=== PATIENT | female | born 1960 | race Caucasian/White ===

== ENCOUNTER 2017-03-06 10:34 | Emergency (ER) | payer OTHER ==
[~2017-03-06] VITALS: Ht 157.5 cm; Wt 98.9 kg
--- NOTE | ~2017-03-06 | EKG ---
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 : 1960 Requested By: Debi Wood Order Number: [id number] MD: Jose Preciado Measurements Intervals [place] Rate: 67 P: 45 HI: 175 QRS: 10 QRSD: 88 T: 23 QT: 390 QTc: 412 Interpretive Statements Sinus rhythm Probable left atrial enlargement Minimal ST elevation, inferior leads Compared to ECG 07/02/2006 13:02:26 ST (T wave) deviation now present Sinus bradycardia no longer present Electronically Signed On 03-06-2017 11:35:33 MILITARY SCIENCE TEACHER by Jose Preciado [email or web address] <ELECTRONICALLY SIGNED> By: Jose Preciado MD 03/06/17 1135 1057 105 Jose Preciado MD /TYLER
[~2017-03-06 10:34] MED LIST: ANTIVERT25 MG PO; CETIRIZINE HCL10 MG PO; HYDROCODONE-AP1 EAC6 PO; K-DUR 20 MEQ T20 MEQ PO; LIORESAL 10 MG10 MG PO; NEURONTIN 300300 M1 PO; QUINAPRIL-HCTZ1 EAC1 PO; TOLTERODINE TART1 MG PO; ZANTAC 150MG T150 MG PO
[2017-03-06 11:18] LABS: ABSOLUTE NEUTROPHILS 3.2 thou/uL (1.4-8.2); BASOPHILS 0.7 % (0.0-2.0); EOSINOPHILS 3.6 % (0.0-3.0); HEMOGLOBIN 14.8 gm/dL (12.0-15.0); LYMPHOCYTES 34.1 % (24.0-44.0); MCH 29.4 pg (26.0-34.0); MCHC 33.6 g/dL (28.0-37.0); MCV 87.6 fL (80.0-100.0); MONOCYTES 8.3 % (1.0-8.0); PLATELET COUNT 285 thou/uL (150-400); POLYS 53.3 % (36.0-66.0); RBC 5.03 mil/uL (4.20-5.00); RDW 13.8 % (10.5-14.5)
[2017-03-06 11:20] LABS: MANUAL DIFF NO
[2017-03-06 11:25] LABS: ANION GAP 10 mmol/L (7-16); BUN 17 mg/dL (7-18); CALCIUM 9.6 mg/dL (8.5-10.1); CHLORIDE 103 mmol/L (98-107); CO2 26 mmol/L (21-32); CREATININE 0.9 mg/dL (0.6-1.0); GLUCOSE 96 mg/dL (74-106); POTASSIUM 4.2 mmol/L (3.5-5.1); SODIUM 139 mmol/L (136-145)
[2017-03-06 11:34] LABS: TROPONIN-I < 0.04 ng/mL (<0.06)
[2017-03-06] MEDS ORDERED: IBUPROFEN 800800 MG PO (13:31)
[2017-03-06 14:00] VITALS: BP 120/71
== END 2017-03-06 14:02 | disposition home or self-care (01) ==
LOC: ER 10:34
PROVIDERS: Emergency Medicine
DX: R07.9 Chest pain, unspecified (principal); I10 Essential (primary) hypertension; Z90.49 Acquired absence of other specified parts of digestive tract; C64.9 Malignant neoplasm of unspecified kidney, except renal pelvis

== ENCOUNTER 2018-04-30 09:17 | Emergency (ER) | payer OTHER ==
[~2018-04-30] VITALS: Ht 157.5 cm; Wt 90.7 kg
[~2018-04-30 09:17] MED LIST changes: +ASPIRIN325 PO; +IBUPROFEN 800800 MG PO; +MOBIC7.5 MG PO; +OXYCODONE-APAP1 EAC4 PO; +VITAMIN B-12500 MCG PO; +VITAMIN D3400 UNI2 PO
[2018-04-30 09:49] LABS: ABSOLUTE NEUTROPHILS 2.7 thou/uL (1.4-8.2); BASOPHILS 0.5 % (0.0-2.0); EOSINOPHILS 5.7 % (0.0-3.0); HEMATOCRIT 43.2 % (37.0-47.0); HEMOGLOBIN 14.4 gm/dL (12.0-15.0); LYMPHOCYTES 26.6 % (24.0-44.0); MCH 28.6 pg (26.0-34.0); MCHC 33.4 g/dL (28.0-37.0); MCV 85.4 fL (80.0-100.0); MONOCYTES 9.6 % (1.0-8.0); PLATELET COUNT 272 thou/uL (150-400); POLYS 57.6 % (36.0-66.0); RBC 5.06 mil/uL (4.20-5.00); RDW 14.8 % (10.5-14.5); WBC 4.7 thou/uL (4.0-11.0)
[2018-04-30 09:50] LABS: URINE BILIRUBIN NEGATIVE (Negative); URINE BLOOD TRACE (Negative); URINE CLARITY CLEAR; URINE COLOR YELLOW; URINE GLUCOSE-RANDOM* NEGATIVE (Negative); URINE KETONES NEGATIVE (Negative); URINE PROTEIN (DIPSTICK) NEGATIVE (Negative); URINE SPECIFIC GRAVITY <= 1.005 (1.005-1.035)
[2018-04-30 09:51] LABS: URINE LEUKOCYTES-REFLEX 2+ (Negative); URINE NITRITE-REFLEX NEGATIVE (Negative); URINE UROBILINOGEN 0.2 E.U./dl (0.2-1.0)
[2018-04-30 09:57] LABS: CALCIUM 9.2 mg/dL (8.5-10.1); CREATININE 0.8 mg/dL (0.6-1.0); POTASSIUM 3.8 mmol/L (3.5-5.1)
[2018-04-30 10:02] LABS: ALBUMIN 3.7 g/dL (3.4-5.0); TOTAL BILIRUBIN 0.4 mg/dL (<0.1-1.0); TOTAL PROTEIN 7.7 g/dL (6.4-8.2)
[2018-04-30 10:06] LABS: AMORPHOUS URATES Moderate /LPF (None Seen); BACTERIA-REFLEX 1-9 Few /HPF (None Seen); CASTS None Seen /LPF (None Seen); SQUAMOUS >10 Many /LPF (0-3); URINE RBC None Seen /HPF (0-2); URINE WBC-REFLEX 6-15 Few /HPF (0-5)
[2018-04-30] MEDS ORDERED: ZOFRAN ODT4 MG PO (12:04)
[2018-04-30] MEDS ORDERED: NORCO 5-325 TA1 EACH PO (12:04)
[2018-04-30] MEDS ORDERED: PROTONIX40 M1 PO (12:04)
[2018-04-30 12:24] VITALS: BP 118/76
== END 2018-04-30 12:22 | disposition home or self-care (01) ==
LOC: ER 09:17
PROVIDERS: Emergency Medicine
DX: R10.13 Epigastric pain (principal); R10.33 Periumbilical pain; R11.0 Nausea; I10 Essential (primary) hypertension; Z90.49 Acquired absence of other specified parts of digestive tract; Z85.528 Personal history of other malignant neoplasm of kidney

== ENCOUNTER 2018-07-25 08:54 | Emergency (ER) | payer OTHER ==
[~2018-07-25] VITALS: Ht 165.1 cm; Wt 106.6 kg
[~2018-07-25 08:54] MED LIST changes: +NORCO 5-325 TA1 EACH PO; +PROTONIX40 M1 PO; +ZOFRAN ODT4 MG PO
[2018-07-25 09:18] LABS: URINE BILIRUBIN NEGATIVE (Negative); URINE BLOOD TRACE (Negative); URINE CLARITY CLEAR; URINE COLOR YELLOW; URINE GLUCOSE-RANDOM* NEGATIVE (Negative); URINE KETONES NEGATIVE (Negative); URINE LEUKOCYTES-REFLEX 1+ (Negative); URINE NITRITE-REFLEX NEGATIVE (Negative); URINE PROTEIN (DIPSTICK) NEGATIVE (Negative); URINE SPECIFIC GRAVITY <= 1.005 (1.005-1.035); URINE UROBILINOGEN 0.2 E.U./dl (0.2-1.0)
[2018-07-25 09:26] LABS: BACTERIA-REFLEX None Seen /HPF (None Seen); CASTS None Seen /LPF (None Seen); CRYSTALS None Seen /LPF (None Seen); SQUAMOUS 0-3 Few /LPF (0-3); URINE RBC None Seen /HPF (0-2); URINE WBC-REFLEX 0-5 Rare /HPF (0-5)
[2018-07-25] MEDS ORDERED: BACTRIM DS TAB1 EACH PO (09:50)
[2018-07-25 10:12] LABS: ABSOLUTE NEUTROPHILS 3.3 thou/uL (1.4-8.2); BASOPHILS 0.6 % (0.0-2.0); EOSINOPHILS 6.4 % (0.0-3.0); HEMATOCRIT 43.2 % (37.0-47.0); HEMOGLOBIN 14.4 gm/dL (12.0-15.0); LYMPHOCYTES 17.8 % (24.0-44.0); MCH 28.5 pg (26.0-34.0); MCHC 33.3 g/dL (28.0-37.0); MCV 85.6 fL (80.0-100.0); MONOCYTES 8.4 % (1.0-8.0); PLATELET COUNT 255 thou/uL (150-400); POLYS 66.8 % (36.0-66.0); RBC 5.05 mil/uL (4.20-5.00)
[2018-07-25 10:17] LABS: CALCIUM 9.9 mg/dL (8.5-10.1); CREATININE 0.8 mg/dL (0.6-1.0); POTASSIUM 4.2 mmol/L (3.5-5.1)
[2018-07-25 10:23] LABS: ALBUMIN 3.7 g/dL (3.4-5.0); TOTAL BILIRUBIN 0.5 mg/dL (<0.1-1.0); TOTAL PROTEIN 7.7 g/dL (6.4-8.2)
[2018-07-25] MEDS ORDERED: NORCO 5-325 TA1 EACH PO (13:01)
[2018-07-25 13:04] VITALS: BP 132/76
== END 2018-07-25 13:05 | disposition home or self-care (01) ==
LOC: ER 08:54
PROVIDERS: Emergency Medicine; Physician Assistant
DX: N39.0 Urinary tract infection, site not specified (principal); M54.9 Dorsalgia, unspecified; Z85.528 Personal history of other malignant neoplasm of kidney; I10 Essential (primary) hypertension; Z90.49 Acquired absence of other specified parts of digestive tract; Z96.652 Presence of left artificial knee joint

== ENCOUNTER 2018-09-22 13:36 | Emergency (ER) | payer OTHER ==
[~2018-09-22] VITALS: Ht 157.5 cm; Wt 85.7 kg
[~2018-09-22 13:36] MED LIST changes: +BACTRIM DS TAB1 EACH PO
[2018-09-22 14:00] LABS: URINE BILIRUBIN NEGATIVE (Negative); URINE BLOOD TRACE (Negative); URINE CLARITY CLEAR; URINE COLOR YELLOW; URINE GLUCOSE-RANDOM* NEGATIVE (Negative); URINE KETONES NEGATIVE (Negative); URINE NITRITE-REFLEX NEGATIVE (Negative); URINE PROTEIN (DIPSTICK) NEGATIVE (Negative); URINE SPECIFIC GRAVITY <= 1.005 (1.005-1.035); URINE UROBILINOGEN 0.2 E.U./dl (0.2-1.0)
[2018-09-22 14:03] LABS: URINE LEUKOCYTES-REFLEX 2+ (Negative)
[2018-09-22 14:26] LABS: BACTERIA-REFLEX 1-9 Few /HPF (None Seen); CASTS None Seen /LPF (None Seen); CRYSTALS None Seen /LPF (None Seen); SQUAMOUS 0-3 Few /LPF (0-3); URINE RBC 0-2 Rare /HPF (0-2); URINE WBC-REFLEX 6-15 Few /HPF (0-5)
[2018-09-22] MEDS ORDERED: NORCO 5-325 TA1 EAC1 PO (14:44)
[2018-09-22] MEDS ORDERED: MACROBID 100 M100 M1 PO (14:46)
[2018-09-22 15:57] VITALS: BP 135/83
== END 2018-09-22 18:42 | disposition home or self-care (01) ==
LOC: ER 13:36
PROVIDERS: Physician Assistant
DX: S92.515A Nondisplaced fracture of proximal phalanx of left lesser toe(s), initial encounter for closed fracture (principal); I10 Essential (primary) hypertension; Z96.652 Presence of left artificial knee joint; Z90.49 Acquired absence of other specified parts of digestive tract; Z85.53 Personal history of malignant neoplasm of renal pelvis; Z79.899 Other long term (current) drug therapy; X58.XXXA Exposure to other specified factors, initial encounter; Y93.89 Activity, other specified; Y92.89 Other specified places as the place of occurrence of the external cause; Y99.8 Other external cause status

== ENCOUNTER 2019-03-01 12:34 | Emergency (ER) | payer OTHER ==
[~2019-03-01] VITALS: Ht 157.5 cm; Wt 87.5 kg
[~2019-03-01 12:34] MED LIST changes: +MACROBID 100 M100 M1 PO; +NORCO 5-325 TA1 EAC1 PO
[2019-03-01] MEDS ORDERED: BACLOFEN 10MG T10 MG PO (12:52)
[2019-03-01] MEDS ORDERED: VICTOZA0.6 MG/0.1 SUBQ (12:53)
[2019-03-01] MEDS ORDERED: NORCO 5-325 TA1 EAC1 PO (15:07)
[2019-03-01] MEDS ORDERED: NORFLEX100 MG PO (15:07)
[2019-03-01 15:21] VITALS: BP 133/85
== END 2019-03-01 15:22 | disposition home or self-care (01) ==
LOC: ER 12:34
DX: M47.896 Other spondylosis, lumbar region (principal); I10 Essential (primary) hypertension; Z85.528 Personal history of other malignant neoplasm of kidney; Z90.49 Acquired absence of other specified parts of digestive tract; Z96.652 Presence of left artificial knee joint

== ENCOUNTER 2020-04-04 16:18 | Emergency (ER) | payer OTHER ==
[~2020-04-04] VITALS: Ht 157.5 cm; Wt 88.5 kg
[~2020-04-04 16:18] MED LIST changes: +BACLOFEN 10MG T10 MG PO; +NORFLEX100 MG PO; +VICTOZA0.6 MG/0.1 SUBQ
[2020-04-04] MEDS ORDERED: NORFLEX100 MG PO (17:13)
[2020-04-04 18:53] VITALS: BP 128/72
== END 2020-04-04 18:53 | disposition home or self-care (01) ==
LOC: ER 16:18
DX: M54.16 Radiculopathy, lumbar region (principal); G89.4 Chronic pain syndrome; I10 Essential (primary) hypertension; Z79.82 Long term (current) use of aspirin; Z79.899 Other long term (current) drug therapy; Z90.49 Acquired absence of other specified parts of digestive tract; Z96.652 Presence of left artificial knee joint; Z85.528 Personal history of other malignant neoplasm of kidney

== ENCOUNTER 2020-06-07 13:35 | Emergency (ER) | payer OTHER ==
[~2020-06-07] VITALS: Ht 157.5 cm; Wt 88.5 kg
[2020-06-07 14:17] LABS: ABSOLUTE NEUTROPHILS 3.3 thou/uL (1.4-8.2); BASOPHILS 0.7 % (0.0-2.0); EOSINOPHILS 4.2 % (0.0-3.0); HEMATOCRIT 42.7 % (37.0-47.0); HEMOGLOBIN 13.8 gm/dL (12.0-15.0); LYMPHOCYTES 28.4 % (24.0-44.0); MCH 28.4 pg (26.0-34.0); MCHC 32.2 g/dL (28.0-37.0); MCV 88.2 fL (80.0-100.0); MONOCYTES 8.8 % (1.0-8.0); PLATELET COUNT 296 thou/uL (150-400); POLYS 57.9 % (36.0-66.0); RBC 4.84 mil/uL (4.20-5.00); RDW 15.2 % (10.5-14.5); WBC 5.7 thou/uL (4.0-11.0)
[2020-06-07 14:31] LABS: APTT 27.3 Seconds (24.5-32.8); PROTIME 10.1 Seconds (9.3-11.4)
[2020-06-07 14:33] LABS: INR < 0.9
[2020-06-07 14:36] LABS: ANION GAP 10 mmol/L (7-16); BUN 11 mg/dL (7-18); CALCIUM 9.5 mg/dL (8.5-10.1); CHLORIDE 103 mmol/L (98-107); CO2 26 mmol/L (21-32); CREATININE 0.8 mg/dL (0.6-1.0); GLUCOSE 87 mg/dL (74-106); POTASSIUM 3.7 mmol/L (3.5-5.1); SODIUM 139 mmol/L (136-145)
[2020-06-07 14:48] LABS: ALBUMIN 3.9 g/dL (3.4-5.0); LIPASE 139 U/L (73-393); SGOT 42 U/L (15-37); SGPT 39 U/L (14-59); TOTAL BILIRUBIN 0.4 mg/dL (0.2-1.0); TOTAL PROTEIN 7.6 g/dL (6.4-8.2); TROPONIN-I <0.06 ng/mL (<0.06)
[2020-06-07] MEDS ORDERED: FAMOTIDINE 20 M20 MG PO (16:06)
[2020-06-07] MEDS ORDERED: OMEPRAZOLE40 MG PO (16:06)
[2020-06-07] MEDS ORDERED: GABAPENTIN 100100 MG PO (16:07)
[2020-06-07 17:33] VITALS: BP 139/89
--- NOTE | 2020-06-08 07:12 | EKG ---
[address] [address] ELECTROCARDIOGRAM REPORT Name: FREYA NAZARIO Room #: [facility]#: [id number] Admission: 06/07/20 Attend Phys: Discharge: 06/07/20 Date of : 64 Report #: [id number] [facility] ED Test Date: 2020-06-07 Test Time: 13:42:56 Pat Name: FREYA NAZARIO Department: Room: Gender: F Guardian Ad Litem: FANNY : 1960 Requested By: Vincent De La Cruz Order Number: [id number] MD: Vadim James Measurements Intervals [place] Rate: 74 P: 28 ND: 177 QRS: 8 QRSD: 87 T: 23 QT: 379 QTc: 421 Interpretive Statements Sinus rhythm Compared to ECG 03/06/2017 10:57:07 ST (T wave) deviation no longer present Electronically Signed On 06-08-2020 7:12:09 ROLFER by Vadim James [email or web address] <ELECTRONICALLY SIGNED> By: Vadim James MD, [facility] 06/08/20 0712 1342 1342 Vadim James MD, FACC /EPI
== END 2020-06-07 17:35 | disposition short-term general hospital (02) ==
LOC: ER 13:35
PROVIDERS: Emergency Medicine
DX: I67.1 Cerebral aneurysm, nonruptured (principal); R07.9 Chest pain, unspecified; I10 Essential (primary) hypertension; Z90.49 Acquired absence of other specified parts of digestive tract; Z79.899 Other long term (current) drug therapy; Z79.82 Long term (current) use of aspirin

== ENCOUNTER 2020-10-14 08:12 | Emergency (ER) | payer OTHER ==
[~2020-10-14] VITALS: Ht 157.5 cm; Wt 90.7 kg
[~2020-10-14 08:12] MED LIST changes: +FAMOTIDINE 20 M20 MG PO; +GABAPENTIN 100100 MG PO; +OMEPRAZOLE40 MG PO
[2020-10-14] MEDS ORDERED: CYCLOBENZAPRINE5 MG PO (08:22)
[2020-10-14] MEDS ORDERED: HYDROCODON-ACE1 EAC7 PO (08:22)
[2020-10-14] MEDS ORDERED: POTASSIUM CHLO10 MEQ PO (08:23)
[2020-10-14] MEDS ORDERED: MECLIZINE HCL25 MG PO (08:23)
[2020-10-14] MEDS ORDERED: QUINAPRIL-HCTZ1 EAC1 PO (08:23)
[2020-10-14] MEDS ORDERED: CLOPIDOGREL75 MG PO (08:23)
[2020-10-14 09:45] VITALS: BP 100/81
== END 2020-10-14 09:45 | disposition home or self-care (01) ==
LOC: ER 08:12
DX: M25.562 Pain in left knee (principal); I10 Essential (primary) hypertension; Z87.898 Personal history of other specified conditions; Z85.528 Personal history of other malignant neoplasm of kidney; Z90.49 Acquired absence of other specified parts of digestive tract; Z96.652 Presence of left artificial knee joint; Z79.899 Other long term (current) drug therapy

== ENCOUNTER 2020-11-03 08:05 | Emergency (ER) | payer OTHER ==
[~2020-11-03] VITALS: Ht 157.5 cm; Wt 90.7 kg
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
[~2020-11-03 08:05] MED LIST changes: +CLOPIDOGREL75 MG PO; +CYCLOBENZAPRINE5 MG PO; +HYDROCODON-ACE1 EAC7 PO; +MECLIZINE HCL25 MG PO; +POTASSIUM CHLO10 MEQ PO
[2020-11-03 09:15] LABS: ANION GAP 7 mmol/L (7-16); BUN 18 mg/dL (7-18); CALCIUM 8.8 mg/dL (8.5-10.1); CHLORIDE 102 mmol/L (98-107); CO2 28 mmol/L (21-32); GLUCOSE 92 mg/dL (74-106); POTASSIUM 3.7 mmol/L (3.5-5.1); SODIUM 137 mmol/L (136-145)
[2020-11-03 09:24] LABS: BASOPHILS 0.5 % (0.0-2.0); EOSINOPHILS 1.4 % (0.0-3.0); HEMATOCRIT 39.9 % (37.0-47.0); HEMOGLOBIN 13.3 gm/dL (12.0-15.0); LYMPHOCYTES 9.2 % (24.0-44.0); MCH 28.1 pg (26.0-34.0); MCHC 33.4 g/dL (28.0-37.0); MCV 84.1 fL (80.0-100.0); MONOCYTES 7.7 % (1.0-8.0); PLATELET COUNT 310 thou/uL (150-400); POLYS 81.2 % (36.0-66.0); RBC 4.74 mil/uL (4.20-5.00); RDW 14.4 % (10.5-14.5); WBC 9.9 thou/uL (4.0-11.0)
[2020-11-03 09:25] LABS: ALBUMIN 3.4 g/dL (3.4-5.0); LIPASE 191 U/L (73-393); SGOT 27 U/L (15-37); SGPT 25 U/L (14-59); TOTAL BILIRUBIN 0.3 mg/dL (0.2-1.0); TOTAL PROTEIN 7.6 g/dL (6.4-8.2); TROPONIN-I <0.06 ng/mL (<0.06)
[2020-11-03] MEDS ORDERED: NORCO7.5 PO (09:56)
[2020-11-03 10:02] VITALS: BP 145/91
--- NOTE | 2020-11-03 10:54 | EKG ---
[place] [address] [facility] [place] [address] ELECTROCARDIOGRAM REPORT Name: FREYA NAZARIO Room #: DEP [facility]#: [id number] Admission: 11/03/20 Attend Phys: Discharge: 11/03/20 Date of : 64 Report #: [id number] [facility] ED Test Date: 2020-11-03 Test Time: 08:12:30 Pat Name: FREYA NAZARIO Department: Room: Gender: F Morning Babysitter: JCHAIMAXIMINOZ : 1960 Requested By: Vincent De La Cruz Order Number: [id number] MD: Agustin Santana Measurements Intervals [place] Rate: 86 P: 32 NV: 159 QRS: 11 QRSD: 86 T: 49 QT: 358 QTc: 429 Interpretive Statements Sinus rhythm Poor R wave progression Compared to ECG 06/07/2020 13:42:56 No significant changes Electronically Signed On 11-03-2020 10:53:58 CDT by Agustin Santana [email or web address] <ELECTRONICALLY SIGNED> By: Agustin Santana MD, [facility] 11/03/20 1053 1 1 Agustin Santana MD, FACC /EPI
== END 2020-11-03 10:05 | disposition home or self-care (01) ==
LOC: ER 08:05
PROVIDERS: Emergency Medicine
DX: M25.511 Pain in right shoulder (principal); R07.89 Other chest pain; I10 Essential (primary) hypertension; Z90.49 Acquired absence of other specified parts of digestive tract; Z85.528 Personal history of other malignant neoplasm of kidney; Z79.891 Long term (current) use of opiate analgesic; Z79.82 Long term (current) use of aspirin; Z79.899 Other long term (current) drug therapy

== ENCOUNTER 2020-12-03 18:10 | Emergency (ER) | payer OTHER ==
[~2020-12-03] VITALS: Ht 157.5 cm; Wt 88.5 kg
[~2020-12-03 18:10] MED LIST changes: +NORCO7.5 PO
[2020-12-03 21:19] VITALS: BP 136/91
== END 2020-12-03 21:19 | disposition home or self-care (01) ==
LOC: ER 18:10
PROVIDERS: Student in an Organized Health Care Education/Training Program
DX: Z20.822 Contact with and (suspected) exposure to COVID-19 (principal); R19.7 Diarrhea, unspecified; I10 Essential (primary) hypertension; Z90.49 Acquired absence of other specified parts of digestive tract; Z79.2 Long term (current) use of antibiotics; Z79.82 Long term (current) use of aspirin; Z79.899 Other long term (current) drug therapy

== ENCOUNTER 2020-12-05 18:54 | Emergency (ER) | payer OTHER ==
[2020-12-05 20:15] VITALS: BP 142/91
== END 2020-12-05 20:15 | disposition home or self-care (01) ==
LOC: ER 18:54
PROVIDERS: Physician Assistant
DX: Z20.822 Contact with and (suspected) exposure to COVID-19 (principal); I10 Essential (primary) hypertension; Z90.49 Acquired absence of other specified parts of digestive tract; Z79.2 Long term (current) use of antibiotics; Z79.82 Long term (current) use of aspirin; Z79.899 Other long term (current) drug therapy; Z85.528 Personal history of other malignant neoplasm of kidney

== ENCOUNTER 2021-01-15 16:15 | Emergency (ER) | payer OTHER ==
[~2021-01-15] VITALS: Ht 157.5 cm; Wt 88.9 kg
--- NOTE | ~2021-01-15 | EMS ---
[address] [address] EMS Patient Care Report Name: FREYA NAZARIO Room #: [facility]#: [id number] Admission: 01/15/21 Attend Phys: Discharge: 01/15/21 Date of : 64 Report #: [id number] THIS REPORT FOR: //name// Report Transmitted: 01/16/2021 12:36 EMS Care Summary [place], [place]/[facility] Incident [id number] @ 01/15/2021 15:30 Incident Location [address] [place] [address] Patient FREYA NAZARIO Female, 61 Years 1960 Patient Address [address] [place] [address] Patient History Cancer, Unspecified,Arthritis, Patient Allergies No known allergies, Patient Medications Meclizine, Gabapentin, Hydrocodone, Potassium, Plavix, Chief Complaint Dizziness Disposition Transported No Lights/Given Dispatch Reason Sick Person Transported To [facility] Narrative Medic 36 dispatched to a residence on a sick patient. Upon arrival the patient was standing in her driveway waiting. Pt chief complaint was dizziness that started 1 hour prior to calling 911. Pt was ambulatory on scene with the assistance of a walker. Pt got onto the EMS cot under her own power and was [address] [address] EMS Patient Care Report Name: FREYA NAZARIO Room #: DEP [facility]#: [id number] Admission: 01/15/21 Attend Phys: Discharge: 01/15/21 Date of : 64 Report #: [id number] secured with seatbelts and loaded into the ambulance without incident. Vital signs remained stable throughout the duration of the transports. Pt was unloaded from the ambulance and taken to the triage area of the ER where care for the patient was turned over to ER staff without incident. Medic 36 placed back in service. Initial Vitals @15:57P: 76,R: 12,BP: 136/92,Pain: 0/10,GCS: 15,SpO2: 99,Revised Trauma: 12, @15:58P: 85,R: 14,BP: 138/90,Pain: 0/10,GCS: 15,SpO2: 99,Revised Trauma: 12, Impression Dizziness Procedures @15:50StretcherResponse: Unchanged@15:50BLS AssessmentResponse: Unchanged Timeline 15:28,Call Received 15:28,Dispatch Notified 15:30,Dispatched 15:31,En Route 15:44,On Scene 15:44,At Patient 15:50,Stretcher,Response: Unchanged 15:50,BLS Assessment,Response: Unchanged 15:56,Depart Scene 15:57,BP: 136/92 M,PULSE: 76,RR: 12 R,SPO2: 99 Ox,ETCO2: ,BG: ,PAIN: 0,GCS: 15, 15:58,BP: 138/90 M,PULSE: 85,RR: 14 R,SPO2: 99 Ox,ETCO2: ,BG: ,PAIN: 0,GCS: 15, 16:10,At Destination 16:23,Call Closed Disclaimer v1.1 Copyright 202 [employer] This EMS Care Summary contains data elements from the applicable legal record (which may be displayed differently). It is designed to provide pertinent information for the following purposes: continuity of care, clinical quality, and state data reporting. The complete legal record is available to ED staff and administrators of the receiving hospital in [employer]'s Patient Tracker. All data is provided "as is."
[2021-01-15 16:46] LABS: URINE BILIRUBIN NEGATIVE (Negative); URINE BLOOD TRACE (Negative); URINE CLARITY CLEAR; URINE COLOR YELLOW; URINE GLUCOSE-RANDOM* NEGATIVE (Negative); URINE KETONES NEGATIVE (Negative); URINE NITRITE-REFLEX NEGATIVE (Negative); URINE PROTEIN (DIPSTICK) NEGATIVE (Negative); URINE UROBILINOGEN 0.2 E.U./dl (0.2-1.0)
[2021-01-15 16:47] LABS: URINE LEUKOCYTES-REFLEX 2+ (Negative)
[2021-01-15 17:00] LABS: BASOPHILS 0.8 % (0.0-2.0); EOSINOPHILS 5.2 % (0.0-3.0); HEMATOCRIT 41.2 % (37.0-47.0); HEMOGLOBIN 13.6 gm/dL (12.0-15.0); LYMPHOCYTES 33.1 % (24.0-44.0); MCH 27.5 pg (26.0-34.0); MCV 83.2 fL (80.0-100.0); MONOCYTES 11.7 % (1.0-8.0); PLATELET COUNT 304 thou/uL (150-400); POLYS 49.2 % (36.0-66.0); RBC 4.95 mil/uL (4.20-5.00); RDW 15.3 % (10.5-14.5); WBC 4.1 thou/uL (4.0-11.0)
[2021-01-15 17:03] LABS: SQUAMOUS 0-3 Few /LPF (0-3)
[2021-01-15 17:04] LABS: BACTERIA-REFLEX 1-9 Few /HPF (None Seen); CASTS None Seen /LPF (None Seen); CRYSTALS None Seen /LPF (None Seen); URINE RBC 1-2 Rare /HPF (NONE SEEN); URINE WBC-REFLEX 0-5 Rare /HPF (0-5)
[2021-01-15 17:14] LABS: ANION GAP 4 mmol/L (7-16); BUN 10 mg/dL (7-18); CHLORIDE 106 mmol/L (98-107); CO2 30 mmol/L (21-32); CREATININE 0.8 mg/dL (0.6-1.0); GLUCOSE 87 mg/dL (74-106); POTASSIUM 3.7 mmol/L (3.5-5.1); SODIUM 140 mmol/L (136-145)
[2021-01-15 19:00] VITALS: BP 97/66
--- NOTE | 2021-01-16 07:00 | EKG ---
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
== END 2021-01-15 19:00 | disposition home or self-care (01) ==
LOC: ER 16:15
PROVIDERS: Emergency Medicine; Nurse Practitioner
DX: R42 Dizziness and giddiness (principal); I10 Essential (primary) hypertension; Z90.49 Acquired absence of other specified parts of digestive tract; Z79.82 Long term (current) use of aspirin; Z79.899 Other long term (current) drug therapy